=== PATIENT | male | born 1945 | race Caucasian/White ===

== ENCOUNTER 2019-01-18 06:04 | Emergency (ER) | payer MEDICARE, OTHER ==
[2019-01-18] MEDS ORDERED: DILTIAZEM HCL INJ 25 MG/5 ML VIAL IV ONE (06:40)
[2019-01-18] MEDS ORDERED: DILTIAZEM HCL/D5W 125 MG/125 ML RTUINJ IV PRN (06:40)
[2019-01-18 06:54] LABS: ABSOLUTE BASOPHILS # (AUTO) 0.1 10^3/uL (0.0-0.2); ABSOLUTE LYMPHOCYTES (AUTO) 1.3 10^3/uL (0.5-4.7); ABSOLUTE MONOCYTES (AUTO) 0.6 10^3/uL (0.1-1.4); ABSOLUTE NEUT (AUTO) 9.7 10^3/uL (1.7-8.2); BASOPHILS % (AUTO) 0.7 % (0-2); EOSINOPHILS % (AUTO) 0.3 % (0-6); HEMATOCRIT 43.1 % (37.9-51.0); HEMOGLOBIN 14.9 g/dL (13.5-17.0); LYMPHOCYTES % (AUTO) 10.8 % (13-45); MEAN CORPUSCULAR HEMOGLOBIN 33.5 pg (27.0-33.4); MEAN CORPUSCULAR HGB CONC 34.6 g/dL (32.0-36.0); MEAN CORPUSCULAR VOLUME 97 fl (80-97); PLATELET COUNT 164 10^3/uL (150-450); RED BLOOD COUNT 4.46 10^6/uL (4.35-5.55); RED CELL DISTRIBUTION WIDTH 14.3 % (11.5-14.0); SEGMENTED NEUTROPHILS % (AUTO) 83.2 % (42-78); TOTAL CELLS COUNTED % (AUTO) 100 %; WHITE BLOOD COUNT 11.6 10^3/uL (4.0-10.5)
--- NOTE | 2019-01-18 06:55 | ER Document Report ---
ED General - General Chief Complaint: Chest Pain > 30 Stated Complaint: CHEST PRESSURE Time Seen by Provider: 01/18/19 06:31 - HPI Notes: Patient is a 73-year-old male who presents the emergency department for evaluation of chest pain. He states that over the last several days he has had some pain, but attributed it to constipation. He states this morning his chest pain felt slightly different, he felt as if he was in atrial fibrillation. He does have a history of that. He is undergone both ablation and chemical conversion. He is currently on Eliquis. He states he had some shortness of breath with exertion yesterday, some mild orthopnea, but denies any paroxysmal nocturnal dyspnea. No fevers or chills, no nausea or vomiting. He has traveled here to see his son, who is currently stationed here in the [employer]. - Related Data Allergies/Adverse Reactions: Penicillins Allergy (Verified 01/18/19 07:14) Home Medications: Eliquis, metoprolol, Vytorin, allopurinol, irbesartan, Synthroid, aspirin. Recently taken off of amiodarone in October Past Medical History - General Information source: Patient - Social History Smoking Status: Never Smoker Frequency of alcohol use: None Drug Abuse: None Family History: CAD, CVA, Thyroid Disfunction - Past Medical History Cardiac Medical History: Reports: Hx Atrial Fibrillation, Hx Hypercholesterolemia, Hx Hypertension Endocrine Medical History: Reports: Hx Hypothyroidism Musculoskeletal Medical History: Reports Hx Gout Review of Systems - Review of Systems Constitutional: No symptoms reported EENT: No symptoms reported Cardiovascular: See HPI Respiratory: See HPI Gastrointestinal: See HPI Genitourinary: No symptoms reported Musculoskeletal: No symptoms reported Skin: No symptoms reported Neurological/Psychological: No symptoms reported Physical Exam - Vital signs Vitals: Resp BP Pulse Ox 14 132/96 H 99 01/18/19 06:22 01/18/19 06:22 01/18/19 06:22 - Notes Notes: Vital signs reviewed, please refer to chart. Head is normocephalic, atraumatic. Pupils equal round, reactive to light. Neck is supple without meningismus. Hea rt is irregularly irregular with normal S1-S2. Lungs are clear to auscultation bilaterally. Abdomen is soft, nontender, normoactive bowel sounds throughout. Extremities without cyanosis, clubbing. Posterior calves are nontender. Peripheral pulses are equal. Skin is warm and dry. Patient is awake, alert, neurological exam is nonfocal. Course - Re-evaluation Re-evalutation: 01/18/19 08:46 Patient is a 73-year-old male with a known history of atrial fibrillation, most recently in sinus after cardioversion, who presents emergency department for evaluation of chest pain. He felt as if he was in atrial fibrillation. On arr ival he was found to be in rapid atrial fibrillation. He was given a bolus of Cardizem, started on a Cardizem drip. Patient's heart rate improved significantly. His blood pressure did drop somewhat, but systolics remained above 95. The patient is resting comfortably. Laboratory investigations r evealed a mild hypothyroidism, but he is Wil taking Synthroid. I certainly do not want to increase his Synthroid in light of this rapid atrial fibrillation. Patient has a transaction manager at home. He was planning on leaving, going back to [place] today. We will continue to monitor. If I am able to keep his heart rate controlled, I will consult cardiology, change oral medications, and have him fol low-up as soon as he returns to [place]. We will continue to follow. 01/18/19 10:23 Patient's heart rate well controlled on a 5 mg an hour drip of Cardizem. He was given a suppository and did have positive results as far as having a bowel movement. I spoke with Dr. Santiago, on-call transaction manager, at [phone]. He was told the patient's current presentation, as well as his medications. He recommends that we increase the metoprolol succinate to 50 mg twice daily. Findings were explained to the patient and his . He is told that should his chest pain return, or he develops new or concerning symptoms of any sort, he should return to the emergency department, or the nearest emergency department, as soon as possible. Otherwise he is to take the metoprolol twice a day. Since he was on vacation, he does not have enough to do that, so he was dispensed this here. Otherwise it is vital that he continue to take the Eliquis. He voiced understanding to that as well. He will follow-up with his transaction manager as soon as he gets back into [place]. He is to return to the ED with worsening or new symptoms of any sort. - Vital Signs Vital signs: Temp Pulse Resp BP Pulse Ox 97.8 F 17 114/90 H 95 01/18/19 10:01 01/18/19 10:01 01/18/19 10:01 01/18/19 10:01 - Laboratory Result Diagrams: 01/18/19 06:39 01/18/19 07:27 Laboratory results interpreted by me: 01/18/19 01/18/19 01/18/19 06:39 06:39 07:27 WBC 11.6 H MCH 33.5 H RDW 14.3 H Seg Neutrophils % 83.2 H Lymphocytes % 10.8 L Absolute Neutrophils 9.7 H PT 15.5 H Total Protein 5.8 L TSH 01/18/19 07:27 WBC MCH RDW Seg Neutrophils % Lymphocytes % Absolute Neutrophils PT Total Protein TSH 6.98 H - Diagnostic Test Radiology reviewed: Reports reviewed Radiology results interpreted by me: 01/18/19 08:44 Chest X-Ray 01/18/19 06:39 IMPRESSION: No acute disease. - EKG Interpretation by Me Additional EKG results interpreted by me: 01/18/19 08:44 Atrial fibrillation with a rate of 143 bpm. Right axis deviation. Right bundle branch block. Nonspecific ST changes, but no acute changes concerning for infarction. No old studies available for comparison. Discharge - Discharge Clinical Impression: Rapid atrial fibrillation, Constipation Condition: Stable Disposition: HOME, SELF-CARE Instructions: Atrial Fibrillation (OM) Additional Instructions: Increase your metoprolol succinate to 50 mg twice daily. Follow-up with your transaction manager as soon as you get back into town. If you develop worsening or new concerning symptoms of any sort, return immediately to the emergency department for reevaluation.
[2019-01-18 07:07] LABS: INTERNATIONAL RATION (INR) 1.23; PROTHROMBIN TIME 15.5 SEC (11.4-15.4)
--- NOTE | 2019-01-18 07:11 | RADIOLOGY REPORT (SQ) ---
Chest single view on 01/18/2019 at 6:54 AM CLINICAL INDICATION: Chest pain, atrial fibrillation COMPARISON: None FINDINGS: There is slight elevation of the right hemidiaphragm. The lungs are clear. Cardiac, hilar and mediastinal contours are within normal limits. Pulmonary vascularity is within normal limits. IMPRESSION: No acute disease.
[2019-01-18 07:58] LABS: ALANINE AMINOTRANSFERASE 45 U/L (21-72); ALBUMIN 3.5 g/dL (3.5-5.0); ALKALINE PHOSPHATASE 53 U/L (38-126); ANION GAP 10 (5-19); ASPARTATE AMINO TRANSFERASE 25 U/L (17-59); BILIRUBIN,DIRECT 0.3 mg/dL (0.0-0.4); BILIRUBIN,TOTAL 0.8 mg/dL (0.2-1.3); BLOOD UREA NITROGEN 15 mg/dL (7-20); CALCIUM 8.8 mg/dL (8.4-10.2); CARBON DIOXIDE 23 mmol/L (22-30); CHLORIDE 107 mmol/L (98-107); CREATINE KINASE 72 U/L (55-170); GLUCOSE 104 mg/dL (75-110); POTASSIUM 3.9 mmol/L (3.6-5.0); SODIUM 139.6 mmol/L (137-145); TOTAL PROTEIN 5.8 g/dL (6.3-8.2)
[2019-01-18 08:10] LABS: CREATINE KINASE MB 1.11 ng/mL (<4.55)
[2019-01-18 08:12] LABS: TROPONIN I < 0.012 ng/mL
[2019-01-18] MEDS ORDERED: GLYCERIN (ADULT) SUPP.RECT PR ONE (08:15)
[2019-01-18] MEDS ORDERED: METOPROLOL SUCCINATE 50 MG TAB.SR.24H PO ONE (10:25)
[2019-01-18 10:36] VITALS: BP 114/90
--- NOTE | 2019-01-19 00:24 | EKG REPORT ---
SEVERITY:- ABNORMAL ECG - ATRIAL FIBRILLATION, V-RATE [id number] RBBB AND LPFB : Confirmed by: Brenden Marie 19-Jan-2019 00:23:27
== END 2019-01-18 10:45 | disposition home or self-care (01) ==
LOC: ER 06:04
DX: I48.91 Unspecified atrial fibrillation (principal); K59.00 Constipation, unspecified; R07.9 Chest pain, unspecified; R06.01 Orthopnea; Z79.01 Long term (current) use of anticoagulants; Z79.899 Other long term (current) drug therapy; I10 Essential (primary) hypertension
CPT/HCPCS: 93005; 96376; 99284; 96365; 96366; 36415; 82553; 82550; 84443; 85025; 85610; 80053; 84484; 71045; 93010; J3490 ×3